=== PATIENT | male | born 1975 | race Caucasian/White ===

== ENCOUNTER 2017-10-01 12:09 | Observation (INO) | payer OTHER, SELFPAY ==
[2017-10-01 12:56] LABS: #Basophils 0.1 thou/uL (0.0-0.2); #Eosinphils 0.2 thou/uL (0.0-0.7); #Lymphocytes 3.7 thou/uL (1.20-3.40); #Monocytes 1.2 thou/uL (0.11-0.59); #Neutrophils 7.5 thou/uL (1.40-6.50); %Eosinophils 1.4 % (0.0-10.0); %Lymphocytes 29.3 % (21.0-51.0); %Monocytes 9.6 % (0.0-10.0); %Neutrophils 58.7 % (42.0-75.0); Hemoglobin 14.4 g/dL (14.0-18.0); Mean Corpuscular HGB CONC 33.4 g/dL (32.0-36.0); Mean Corpuscular Hemoglobin 34.7 pg (27.0-31.0); Mean Platelet Volume 7.6 fL (7.4-10.4); Platelet Count 257 thou/uL (130-400); RBC Distribution Width 11.8 % (11.5-14.5); Red Blood Cell (RBC) Count 4.16 mill/uL (4.70-6.10); White Blood Cell (WBC) Count 12.7 thou/uL (4.8-10.8)
[2017-10-01 13:03] LABS: INR-International Normal Ratio 0.9; PTT 25.5 SEC (22.9-36.1); Prothrombin Time 12.5 SEC (12.0-14.7)
[2017-10-01 13:11] LABS: ALT (SGPT) 14 U/L (8-55); AST (SGOT) 34 U/L (5-34); Acetaminophen Less than 6.0 mcg/mL (10.0-30.0); Albumin 4.2 g/dL (3.5-5.0); Alcohol 312 mg/dL (Less than 10); Alkaline Phosphatase 57 U/L (40-150); Anion Gap 17 mmol/L (10-20); BUN (Urea Nitrogen) 9 mg/dL (8.9-20.6); Bilirubin, Total 0.4 mg/dL (0.2-1.2); CK (CPK) 200 U/L (30-200); Calc. Creatinine Clearance 0 mL/min (70-130); Calcium 9.2 mg/dL (7.8-10.44); Carbon Dioxide 19 mmol/L (22-29); Chloride 107 mmol/L (98-107); Estimated GFR-MDRD Greater than 90; Globulin 2.7 g/dL (2.4-3.5); Glucose 82 mg/dL (70-105); Lipase 131 U/L (8-78); Protein, Total 6.9 g/dL (6.0-8.3); Salicylate Less than 8.0 mg/dL (15.0-30.0); Sodium 139 mmol/L (136-145)
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
[2017-10-01 15:05] LABS: Amphetamine Not Detected (NotDetected); Barbiturates Screen Not Detected (NotDetected); Benzodiazepine Screen Not Detected (NotDetected); Cocaine Metabolite Screen Detected (NotDetected); Medtox Control Line Valid? VALID (VALID); Medtox Reader # READER 1; Methadone Not Detected (NotDetected); Methamphetamine Not Detected (NotDetected); Opiate Screen Not Detected (NotDetected); Oxycodone Screen Not Detected (NotDetected); Phencyclidine (PCP) Not Detected (NotDetected); THC/Cannabinoid Screen Not Detected (NotDetected); Tricyclic Screen Not Detected (NotDetected)
[2017-10-01] MEDS ORDERED: Ondansetron ODT 4 MG TAB PO PRN (15:13)
[2017-10-01] MEDS ORDERED: hydrALAZINE 20 MG/ML VIAL SLOW IVP PRN (15:13)
[2017-10-01] MEDS ORDERED: Dextrose 50% Abboject 50 ML SYRINGE SLOW IVP PRN (15:13)
[2017-10-01] MEDS ORDERED: Ondansetron HCl/PF 4 MG/2 ML Vial IVP PRN (15:13)
[2017-10-01] MEDS ORDERED: HYDROcodone/Acetaminophen 10/325 mg Tablet PO PRN ×2 (15:13)
[2017-10-01] MEDS ORDERED: Dextrose 5% in Water 1,000 ML IV PRN (15:13)
[2017-10-01] MEDS ORDERED: Morphine 2 MG/ML SYRINGE SLOW IVP PRN (15:28)
[2017-10-01] MEDS ORDERED: Morphine 5 MG/ML SYRINGE SLOW IVP PRN (15:29)
[2017-10-01] MEDS ORDERED: ISOVUE-370 76%-LOCM 1 ML ONE (16:55)
[2017-10-01 18:00] VITALS: TEMP 97.9
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
[2017-10-01] MEDS ORDERED: Famotidine 20 MG TAB PO SCH (21:00)
[2017-10-01] MEDS ORDERED: Sodium Chloride 0.9% 1,000 ML IV SCH (23:55)
== END 2017-10-01 16:50 | disposition left against medical advice (07) ==
LOC: ERS 12:09 → SURG B 15:10
PROVIDERS: ADMIT Specialist; ATTEND Specialist
DX: S82.041A Displaced comminuted fracture of right patella, initial encounter for closed fracture (principal); S76.111A Strain of right quadriceps muscle, fascia and tendon, initial encounter; F17.210 Nicotine dependence, cigarettes, uncomplicated; F14.10 Cocaine abuse, uncomplicated; F12.10 Cannabis abuse, uncomplicated; F10.129 Alcohol abuse with intoxication, unspecified; F19.10 Other psychoactive substance abuse, uncomplicated; V89.2XXA Person injured in unspecified motor-vehicle accident, traffic, initial encounter; Z82.49 Family history of ischemic heart disease and other diseases of the circulatory system; Z98.890 Other specified postprocedural states; Z53.21 Procedure and treatment not carried out due to patient leaving prior to being seen by health care provider
CPT/HCPCS: 36415; 70450; 71045; 71260; 72125; 74177; 80053; 80306; 80307; 82550; 83690; 85025; 85610; 85730; 86850; 86900; 86901; 96360; 96361; 96374; G0378; G0390; J2270

== ENCOUNTER 2017-10-12 08:49 | Inpatient (IN) | payer OTHER, SELFPAY ==
[2017-10-12 09:59] LABS: #Basophils 0.1 thou/uL (0.0-0.2); #Eosinphils 0.1 thou/uL (0.0-0.7); #Monocytes 1.3 thou/uL (0.11-0.59); %Basophils 0.9 % (0.0-1.0); %Eosinophils 1.1 % (0.0-10.0); %Lymphocytes 19.2 % (21.0-51.0); %Monocytes 12.3 % (0.0-10.0); %Neutrophils 66.5 % (42.0-75.0); Hemoglobin 14.6 g/dL (14.0-18.0); Mean Corpuscular HGB CONC 34.1 g/dL (32.0-36.0); Mean Corpuscular Hemoglobin 35.6 pg (27.0-31.0); Mean Platelet Volume 7.2 fL (7.4-10.4); Platelet Count 381 thou/uL (130-400); RBC Distribution Width 11.7 % (11.5-14.5); Red Blood Cell (RBC) Count 4.09 mill/uL (4.70-6.10); White Blood Cell (WBC) Count 10.5 thou/uL (4.8-10.8)
[2017-10-12 10:08] LABS: INR-International Normal Ratio 0.9; PTT 26.7 SEC (22.9-36.1); Prothrombin Time 12.1 SEC (12.0-14.7)
--- NOTE | 2017-10-12 10:09 | ULT ---
RIGHT LOWER EXTREMITY VENOUS DOPPLER ULTRASOUND: Date: 10-12-17 Comparison: None. History: Pain. Fall. Recent trauma. Assess for DVT. Technique: Multiplanar grayscale sonographic imaging of the venous structures of the right lower extr emity obtained with color flow and spectral analysis. FINDINGS: The right common femoral vein, greater saphenous vein, profunda femoral vein, femoral vein, popliteal vein, and posterior tibial vein are patent. There is normal blood flow, augmentation, and compressio n within the deep venous system of the right lower extremity. No evidence for deep venous thrombosis. IMPRESSION: No evidence for deep venous thrombosis of the right lower extremity. POS: [facility]
--- NOTE | 2017-10-12 10:13 | RAD ---
RIGHT KNEE FOUR VIEWS: History: Right knee pain. FINDINGS: Comminuted and distracted fracture of the patella is again seen without significant interval change s remi 10-01-17. IMPRESSION: Comminuted right patella fracture. POS: [facility]
[2017-10-12 10:17] LABS: ALT (SGPT) 11 U/L (8-55); AST (SGOT) 21 U/L (5-34); Albumin 4.2 g/dL (3.5-5.0); Alkaline Phosphatase 74 U/L (40-150); Anion Gap 14 mmol/L (10-20); BUN (Urea Nitrogen) 15 mg/dL (8.9-20.6); Bilirubin, Total 0.7 mg/dL (0.2-1.2); CK (CPK) 84 U/L (30-200); Calc. Creatinine Clearance 0 mL/min (70-130); Calcium 9.7 mg/dL (7.8-10.44); Carbon Dioxide 26 mmol/L (22-29); Chloride 102 mmol/L (98-107); Estimated GFR-MDRD Greater than 90; Glucose 106 mg/dL (70-105); Potassium 4.6 mmol/L (3.5-5.1); Protein, Total 7.2 g/dL (6.0-8.3); Sodium 137 mmol/L (136-145)
[2017-10-12 10:23] LABS: Acetaminophen Less than 6.0 mcg/mL (10.0-30.0); Alcohol Less than 10 mg/dL (Less than 10); Salicylate Less than 8.0 mg/dL (15.0-30.0)
[2017-10-12 11:49] LABS: Amphetamine Not Detected (NotDetected); Barbiturates Screen Not Detected (NotDetected); Benzodiazepine Screen Not Detected (NotDetected); Cocaine Metabolite Screen Not Detected (NotDetected); Medtox Control Line Valid? VALID (VALID); Medtox Reader # READER 1; Methadone Not Detected (NotDetected); Methamphetamine Not Detected (NotDetected); Opiate Screen Not Detected (NotDetected); Oxycodone Screen Not Detected (NotDetected); Phencyclidine (PCP) Not Detected (NotDetected); THC/Cannabinoid Screen Not Detected (NotDetected); Tricyclic Screen Not Detected (NotDetected)
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
[2017-10-12] MEDS ORDERED: Ondansetron ODT 4 MG TAB PO PRN (16:43)
[2017-10-12] MEDS ORDERED: Promethazine HCl 25 MG/ML VIAL IM PRN ×2 (16:43)
[2017-10-12] MEDS ORDERED: Dextrose 50% Abboject 50 ML SYRINGE SLOW IVP PRN (16:43)
[2017-10-12] MEDS ORDERED: Ondansetron HCl/PF 4 MG/2 ML Vial IVP PRN (16:43)
[2017-10-12] MEDS ORDERED: hydrALAZINE 20 MG/ML VIAL SLOW IVP PRN (16:43)
[2017-10-12] MEDS ORDERED: Dextrose 5% in Water 1,000 ML IV PRN (16:43)
[2017-10-12] MEDS: traMADol HCl 50 MG TAB PO SCH (17:18)
[2017-10-12] MEDS: Ketorolac Tromethamine 30 MG/ML VIAL IVP SCH (17:21)
[2017-10-12 18:22] VITALS: BMI 19.3
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
[2017-10-12] MEDS: Famotidine 20 MG TAB PO SCH (22:47)
[2017-10-12] MEDS: diphenhydrAMINE 25 MG CAP PO PRN (22:47)
[2017-10-12] MEDS: Melatonin 3 MG TAB PO PRN (22:48)
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
[2017-10-13] MEDS: traMADol HCl 50 MG TAB PO SCH ×5 (01:25→23:53)
[2017-10-13] MEDS: Ketorolac Tromethamine 30 MG/ML VIAL IVP SCH ×5 (01:25→23:52)
[2017-10-13] MEDS: Sodium Chloride 0.9% 1,000 ML IV SCH ×3 (01:31→18:22)
[2017-10-13] MEDS: Cyclobenzaprine 10 MG TAB PO PRN ×2 (01:40→20:51)
[2017-10-13 05:42] LABS: #Basophils 0.1 thou/uL (0.0-0.2); #Eosinphils 0.2 thou/uL (0.0-0.7); #Lymphocytes 2.8 thou/uL (1.20-3.40); #Monocytes 0.8 thou/uL (0.11-0.59); #Neutrophils 3.4 thou/uL (1.40-6.50); %Basophils 1.5 % (0.0-1.0); %Eosinophils 3.1 % (0.0-10.0); %Neutrophils 46.4 % (42.0-75.0); Hemoglobin 12.6 g/dL (14.0-18.0); Mean Corpuscular HGB CONC 33.5 g/dL (32.0-36.0); Mean Corpuscular Hemoglobin 35.4 pg (27.0-31.0); Platelet Count 319 thou/uL (130-400); RBC Distribution Width 11.7 % (11.5-14.5); Red Blood Cell (RBC) Count 3.57 mill/uL (4.70-6.10); White Blood Cell (WBC) Count 7.2 thou/uL (4.8-10.8)
[2017-10-13 06:11] LABS: Anion Gap 10 mmol/L (10-20); BUN (Urea Nitrogen) 14 mg/dL (8.9-20.6); Calc. Creatinine Clearance 147 mL/min (70-130); Calcium 8.6 mg/dL (7.8-10.44); Carbon Dioxide 24 mmol/L (22-29); Chloride 107 mmol/L (98-107); Estimated GFR-MDRD Greater than 90; Glucose 90 mg/dL (70-105); Potassium 4.4 mmol/L (3.5-5.1); Sodium 137 mmol/L (136-145)
[2017-10-13] MEDS: Famotidine 20 MG TAB PO SCH ×2 (08:36→20:51)
[2017-10-13] MEDS ORDERED: CEFAZOLIN/Water 2 GM/20 ML SYRINGE SLOW IVP SCH (09:45)
[2017-10-13] MEDS ORDERED: CEFAZOLIN/Water 2 GM/20 ML SYRINGE ONE (11:28)
[2017-10-13] MEDS ORDERED: Fentanyl 100 MCG/2 ML VIAL ONE ×6 (11:36→15:25)
[2017-10-13] MEDS ORDERED: Midazolam HCl 2 mg/2 ml Vial ONE ×3 (11:36→13:17)
[2017-10-13] MEDS ORDERED: Zolpidem Tartrate 5 MG TAB PO PRN (12:15)
[2017-10-13] MEDS ORDERED: Ondansetron HCl/PF 4 MG/2 ML Vial IVP PRN ×2 (12:15→14:44)
[2017-10-13] MEDS ORDERED: Promethazine HCl 25 MG/ML VIAL IM PRN ×2 (12:15→14:44)
[2017-10-13] MEDS ORDERED: Fentanyl 100 MCG/2 ML VIAL IV PRN (12:15)
[2017-10-13] MEDS ORDERED: HYDROcodone/Acetaminophen 10/325 mg Tablet PO PRN ×2 (12:15)
[2017-10-13] MEDS ORDERED: Ropivacaine 0.2% 550 ML 550 ML NERVE BLCK SCH (12:15)
[2017-10-13] MEDS ORDERED: traMADol HCl 50 MG TAB PO PRN ×2 (12:15)
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
[2017-10-13] MEDS ORDERED: Ropivacaine 0.5% HCl/PF (150 MG/30 ML VIAL) ONE (14:08)
[2017-10-13] MEDS ORDERED: Ropivacaine 0.2% HCl/PF (40 MG/20 ML VIAL) ONE (14:08)
[2017-10-13] MEDS ORDERED: Ondansetron HCl/PF 4 MG/2 ML Vial ONE (14:34)
[2017-10-13] MEDS ORDERED: Propofol 200 MG/20 ML VIAL ONE (14:34)
[2017-10-13] MEDS ORDERED: Ketorolac Tromethamine 30 MG/ML VIAL ONE (14:34)
[2017-10-13] MEDS ORDERED: Lidocaine 1% PF 5 ML VIAL ONE (14:34)
[2017-10-13] MEDS ORDERED: Promethazine HCl 25 MG/ML VIAL SLOW IVP PRN (14:44)
[2017-10-13] MEDS ORDERED: Promethazine HCl 25 MG/ML VIAL ONE (14:55)
--- NOTE | 2017-10-13 20:41 | RAD ---
RIGHT KNEE TWO VIEWS: 10/13/17 HISTORY: 42-year-old male for postoperative evaluation. COMPARISON: 10/12/17. FINDINGS: The multiple irregular patellar fracture fragments of the lower portion of the patellar have been rem lesvia. The remaining upper portion of the patella is in a more normal anatomic position. There is exte nsive recent postsurgical change. IMPRESSION: Postsurgical changes of the right knee with removal of multiple lower comminuted patellar fragments w ith a more normal position for the upper patellar remaining fragment when compared to the prior study . POS: [facility]
[2017-10-13] MEDS: Aspirin 81 mg Enteric Coated Tablet PO SCH (20:51)
[2017-10-13] MEDS: CEFAZOLIN/Water 2 GM/20 ML SYRINGE SLOW IVP SCH (20:52)
[2017-10-13] MEDS: Acetaminophen 500 MG TAB PO SCH (20:56)
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
[2017-10-13] MEDS: Melatonin 3 MG TAB PO PRN (23:53)
[2017-10-13] MEDS: diphenhydrAMINE 25 MG CAP PO PRN (23:53)
[2017-10-13] MEDS ORDERED: Acetaminophen 500 MG TAB PO SCH (23:59)
[2017-10-14] MEDS: CEFAZOLIN/Water 2 GM/20 ML SYRINGE SLOW IVP SCH ×2 (04:14→12:56)
[2017-10-14] MEDS: Acetaminophen 500 MG TAB PO SCH ×2 (04:14→08:22)
[2017-10-14] MEDS ORDERED: Ibuprofen 800 MG TAB PO SCH (06:00)
[2017-10-14] MEDS: traMADol HCl 50 MG TAB PO SCH ×2 (06:50→11:43)
[2017-10-14] MEDS: Aspirin 81 mg Enteric Coated Tablet PO SCH (08:22)
[2017-10-14] MEDS: Famotidine 20 MG TAB PO SCH (08:22)
[2017-10-14] MEDS ORDERED: HYDROcodone/Acetaminophen 10/325 mg Tablet PO PRN ×2 (09:33)
[2017-10-14 12:03] VITALS: BP 124/86; TEMP 98
[2017-10-14] MEDS ORDERED: Ketorolac Tromethamine 30 MG/ML VIAL IVP PRN (23:59)
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
== END 2017-10-14 13:20 | disposition home or self-care (01) | DRG 489 ==
LOC: ERS 08:49 → SURG B 12:20
PROVIDERS: ADMIT Surgery; ATTEND Surgery
PROC: 0QBD0ZZ Excision of Right Patella, Open Approach (ICD-10-PCS; principal; 2017-10-13)
PROC: 0LQQ0ZZ Repair Right Knee Tendon, Open Approach (ICD-10-PCS; 2017-10-13)
DX: S82.041A Displaced comminuted fracture of right patella, initial encounter for closed fracture (principal); F17.210 Nicotine dependence, cigarettes, uncomplicated; V89.2XXA Person injured in unspecified motor-vehicle accident, traffic, initial encounter
CPT/HCPCS: 36415; 80048; 80053; 80306; 80307; 82550; 85025; 85610; 85730; 86850; 86900; 86901; 96374; A4306; G8978-GP-CL; G8979-GP-CK; J1885; J2001; J2250; J2270; J2405; J2550; J2704; J2795; J3010